=== PATIENT | male | born 1945 | race Caucasian/White ===

== ENCOUNTER 2018-04-04 19:05 | Inpatient (IN) | payer OTHER ==
[2018-04-04 19:40] LABS: Absolute Monocytes 0.5 K/uL (0.1-1.3); Absolute Neutrophil 6.1 K/uL (1.8-8.0); Basophils % 0.8 % (0-1.3); Eosinophils % 0.7 % (0-4.4); Hematocrit 42.6 % (39.6-49.0); Lymphocytes % 13.2 % (15.3-44.8); Monocytes % 6.6 % (3.3-12.3); Protime INR 1.14; RBC Red Blood Cell Count 4.78 M/uL (4.33-5.43)
[2018-04-04] MEDS ORDERED: ALBUTEROL 2.5 MG/3 ML NEB SOL ONE (19:50)
[2018-04-04] MEDS ORDERED: IPRATROPIUM BROM 0.5MG/2.5ML ONE (19:50)
[2018-04-04] MEDS ORDERED: ACETAMINOPHEN 500 MG TAB ONE (19:50)
[2018-04-04 19:59] LABS: ALT/SGPT 60 U/L (12-78); AST/SGOT 51 U/L (15-37); Alkaline Phosphatase 61 U/L (45-117); BUN Blood Urea Nitrogen 10 mg/dL (7-18); Bicarbonate 28 mmol/L (21-32); Bilirubin Direct 0.2 mg/dL (0-0.2); Bilirubin Total 0.5 mg/dL (0.2-1.0); Creatine Phosphokinase 511 U/L (39-308); Glucose Level 106 mg/dL (74-106); Lipase 197 U/L (73-393); Protein, Total 7.7 g/dL (6.4-8.2); Sodium Level 137 mmol/L (136-145); Troponin (Emerg Dept Use Only) < 0.02 ng/mL (0.0-0.045)
--- NOTE | 2018-04-04 20:11 | RAD REPORT ---
EXAM DESCRIPTION: Toyin Single View04/04/2018 7:46 pm CLINICAL HISTORY: Cough COMPARISON: 2016 FINDINGS: The lungs appear clear of acute infiltrate. The heart is normal size IMPRESSION: No acute abnormalities displayed
[2018-04-04 20:22] LABS: Blood Gas Oxyhemoglobin 90.1 % (94-97)
[2018-04-04 21:22] LABS: Urine Blood 1+ (NEG); Urine Glucose NEGATIVE (NEG); Urine Protein 1+ (NEG); Urine Specific Gravity 1.025 (1.005-1.030); Urine pH 5.5 (5.0-7.0)
[2018-04-04 21:25] LABS: Urine Bacteria <20 /HPF (NONE SEEN); Urine Culture Reflex Order NOT NEEDED; Urine RBC <5 /HPF (NONE SEEN)
[2018-04-04] MEDS ORDERED: LEVALBUTEROL 1.25 MG/3 ML NEB ONE (23:16)
[2018-04-04] MEDS ORDERED: LORazepam 2 MG/ML VIAL ONE (23:16)
--- NOTE | 2018-04-04 23:19 | EDPHYS ---
Physician Documentation [facility] Name: Pedro Amaya Age: 72 yrs Sex: Male : 1945 Arrival Date: 04/04/2018 Time: 19:09 Bed 5 Private MD: ED Physician Gurmeet Moses HPI: 04/04 19:33 This 72 yrs old Male presents to ER via EMS with complaints of Productive pkl Cough, Fever. 19:33 The patient or guardian reports cough, described as moderate, with productive sputum, pkl that is yellow. Onset: The symptoms/episode began/occurred 3 day(s) ago. Associated signs and symptoms: Pertinent positives: chest pain, with cough, fever. Historical: - Allergies: 19:16 Amoxil; ak1 19:16 phenyifensin; ak1 19:16 solunedrol-cortozone; ak1 19:16 indomethacin; ak1 - Home Meds: 19:29 bupropion HCl 100mg tab 2.5 tabs in the morning and 2 tabs at night Oral tab [Active]; ak1 citalopram 40 mg tab 1 tab once daily [Active]; terazosin 10 mg oral cap 1 cap once daily [Active]; sulfamethoxazole-trimethoprim 800mg // Oral [Active]; pyridostigmine bromide 60mg 1/2 tgabd 3 times daily oral tab [Active]; mycophenolate mofetil 500 mg oral tab 1 tabs [Active]; prednisone 30 mg daily Oral [Active]; Wellbutrin 150mg 2 tabs daily Oral [Active]; clonazepam 0.5 mg Oral tab 1 tab [Active]; citalopram oral [Active]; quetiapine 25 mg oral tab [Active]; - PMHx: 19:16 anxity; ptsd; depression; Hypertension; miastenia gravis; ak1 20:20 COPD; ak1 - PSHx: 19:16 back sx; knee sx; nasal sx; ak1 - Immunization history:: Adult Immunizations unknown. - Social history:: Smoking status: unknown. - Ebola Screening: : No symptoms or risks identified at this time. ROS: 19:33 Eyes: Negative for injury, pain, redness, and discharge, ENT: Negative for injury, pkl pain, and discharge, Neck: Negative for injury, pain, and swelling. 19:33 Cardiovascular: Positive for chest pain, with cough. 19:33 Respiratory: Positive for cough, with yellow sputum, shortness of breath, at rest. 19:33 Abdomen/GI: Negative for abdominal pain, nausea, vomiting, and diarrhea. 19:33 Back: Negative for acute changes. 19:33 : Negative for urinary symptoms. 19:33 MS/extremity: Negative for acute changes. 19:33 Skin: Negative for rash. 19:33 Neuro: Negative for altered mental status. Exam: 19:33 Head/Face: Normocephalic, atraumatic. Eyes: Pupils equal round and reactive to light, pkl extra-ocular motions intact. Lids and lashes normal. Conjunctiva and sclera are non-icteric and not injected. Cornea within normal limits. Periorbital areas with no swelling, redness, or edema. ENT: Nares patent. No nasal discharge, no septal abnormalities noted. Tympanic membranes are normal and external auditory canals are clear. Oropharynx with no redness, swelling, or masses, exudates, or evidence of obstruction, uvula midline. Mucous membranes moist. Neck: Trachea midline, no thyromegaly or masses palpated, and no cervical lymphadenopathy. Supple, full range of motion without nuchal rigidity, or vertebral point tenderness. No Meningismus. Chest/axilla: Normal chest wall appearance and motion. Nontender with no deformity. No lesions are appreciated. Cardiovascular: Regular rate and rhythm with a normal S1 and S2. No gallops, murmurs, or rubs. Normal PMI, no JVD. No pulse deficits. 19:33 Respiratory: the patient does not display signs of respiratory distress, Respirations: labored breathing, that is mild, Breath sounds: rales, that are mild, are scattered. 19:33 Abdomen/GI: Bowel sounds: normal, Palpation: abdomen is soft and non-tender, in all quadrants. 19:33 Back: Exam negative for acute changes. 19:33 : Exam negative for acute changes. 19:33 Musculoskeletal/extremity: Exam is negative for acute changes. 19:33 Skin: Exam negative for rash. 19:33 Neuro: Orientation: is normal, Mentation: is normal, Cranial nerves: grossly normal, Motor: is normal. Vital Signs: 19:16 BP 189 / 89; Pulse 97; Resp 22; Temp 103.1(O); Pulse Ox 90% on R/A; Weight 99.79 kg ak1 (R); Height 5 ft. 10 in. (177.80 cm) (R); Pain 0/10; 20:18 BP 160 / 87; Pulse 100; Resp 19; Pulse Ox 91% on R/A; ak1 20:53 BP 149 / 74; Pulse 111; Resp 22; Pulse Ox 92% on 4 lpm NC; Pain 0/10; ak1 20:57 Temp 101.5(A); ak1 21:36 BP 129 / 71; Pulse 95; Resp 26; Pulse Ox 91% on 4 lpm NC; ak1 22:38 BP 141 / 77; Pulse 98; Resp 24; Temp 100.9(O); Pulse Ox 93% on 4 lpm NC; Pain 0/10; ak1 22:59 BP 139 / 74; Pulse 101; Resp 18; Pulse Ox 91% on R/A; ak1 19:16 Body Mass Index 31.57 (99.79 kg, 177.80 cm) ak1 MDM: 19:20 Patient medically screened. pkl 23:16 Data reviewed: vital signs, nurses notes, lab test result(s), EKG, radiologic studies, pkl CT scan, plain films. 04/04 19:19 Order name: Basic Metabolic Panel; Complete Time: 20:21 [facility] 04/04 19:19 Order name: Blood Culture Adult (2) [facility] 04/04 19:19 Order name: CBC with Diff; Complete Time: 20:21 [facility] 04/04 19:19 Order name: Ckmb; Complete Time: 20:21 [facility] 04/04 19:19 Order name: CPK; Complete Time: 20:21 [facility] 04/04 19:19 Order name: Lactate; Complete Time: 20:21 [facility] 04/04 19:19 Order name: LFT's; Complete Time: 20:21 [facility] 04/04 19:19 Order name: Lipase; Complete Time: 20:21 [facility] 04/04 19:19 Order name: Procalcitonin; Complete Time: 20:21 [facility] 04/04 19:19 Order name: Protime (+inr); Complete Time: 20:21 [facility] 04/04 19:19 Order name: Ptt, Activated; Complete Time: 20:21 tn04/04 19:19 Order name: Troponin (emerg Dept Use Only); Complete Time: 20:21 ak1 04/04 19:19 Order name: Urine Microscopic Only; Complete Time: 21:38 ak1 04/04 19:29 Order name: Flu; Complete Time: 20:21 pkl 04/04 19:19 Order name: Chest Single View XRAY; Complete Time: 20:21 ak1 04/04 19:19 Order name: Cardiac monitoring; Complete Time: 19:22 ak 04/04 19:32 Order name: ABG; Complete Time: 20:45 pk 04/04 19:37 Order name: Strep; Complete Time: 20:21 pk 04/04 20:15 Order name: Throat Culture [facility] 04/04 20:24 Order name: D-Dimer; Complete Time: 21:08 pkl 04/04 21:07 Order name: CT Chest For PE Angio [facility] 04/04 21:17 Order name: Urine Dipstick--Ancillary (enter results); Complete Time: 21:38 [facility] 04/04 19:19 Order name: EKG - Nurse/Tech; Complete Time: 19:22 [facility] 04/04 19:19 Order name: IV Saline Lock - Large Bore; Complete Time: 19:31 ak1 04/04 19:19 Order name: Labs collected and sent; Complete Time: 19:31 [facility] 04/04 19:20 Order name: O2 Per Protocol; Complete Time: 19:32 ak1 04/04 19:20 Order name: O2 Sat Monitoring; Complete Time: 19:32 [facility] 04/04 19:20 Order name: Urine Dipstick-Ancillary (obtain specimen); Complete Time: 20:58 [facility] Administered Medications: 19:33 CANCELLED (ERP verba orders): NS 0.9% (30 ml/kg) 30 ml/kg IV at bolus once; Sepsis [facility] Protocol 19:47 Drug: Tylenol 1000 mg Route: PO; tn1 20:12 Follow up: Response: No adverse reaction [facility] 19:47 Drug: NS 0.9% 1000 ml Route: IV; Rate: 100 ml/hr; Site: right antecubital; [facility] 04/05 00:01 Follow up: IV Status: Infusion continued upon admission [facility] 04/04 20:13 Drug: Albuterol - atroVENT (3:1) (2.5 mg - 0.5 mg) 3 ml Route: Nebulizer; ak1 20:58 Follow up: Response: No adverse reaction ak1 23:13 Drug: Xopenex 1.25 mg Route: Inhalation; lp1 23:13 Drug: Ativan 1 mg Route: IVP; Site: left antecubital; lp1 23:59 Follow up: Response: No adverse reaction ak1 23:14 Drug: Zofran 4 mg Route: IVP; Site: right antecubital; ak1 23:59 Follow up: Response: No adverse reaction ak1 Disposition: 04/04/18 23:19 Hospitalization ordered by Sharad Segal for Inpatient Admission. Preliminary diagnosis is Acute dyspnea. Pneumonia right lung. Hypoxia. Myasthenia gravis. - Bed requested for Telemetry/MedSurg (Inpatient). - Status is Inpatient Admission. ak1 - Condition is Stable. - Problem is new. - Symptoms are unchanged. UTI on Admission? No Signatures: Dispatcher [employer] EDMS Fanny Parker RN RN Gurmeet Moses MD MD [facility] Gail Chavez RN RN 1 Arabella Lester RN RN ak1 Corrections: (The following items were deleted from the chart) 19:32 19:20 Accucheck ordered. ak1 ak1 19:33 19:20 NS 0.9% (30 ml/kg) 30 ml/kg IV at bolus once; Sepsis Protocol ordered. ak1 ak1 04/05 00:04 04/04 23:19 Hospitalization Ordered by Sharad Segal MD for Inpatient Admission. Preliminary diagnosis is Acute dyspnea. Pneumonia right lung. Hypoxia. Myasthenia gravis. Bed requested for Telemetry/MedSurg (Inpatient). Status is Inpatient Admission. Condition is Stable. Problem is new. Symptoms are unchanged. UTI on Admission? No. pkl 04/05 00:29 00:04 04/04/2018 23:19 Hospitalization Ordered by Sharad Segal MD for Inpatient ak1 Admission. Preliminary diagnosis is Acute dyspnea. Pneumonia right lung. Hypoxia. Myasthenia gravis. Bed requested for Telemetry/MedSurg (Inpatient). Status is Inpatient Admission. Condition is Stable. Problem is new. Symptoms are unchanged. UTI on Admission? No. joshua
--- NOTE | 2018-04-04 23:19 | ER ---
Nurse's Notes [facility] Name: Pedro Amaya Age: 72 yrs Sex: Male : 1945 Arrival Date: 04/04/2018 Time: 19:09 Bed 5 Private MD: Diagnosis: Acute dyspnea. Pneumonia right lung. Hypoxia. Myasthenia gravis Presentation: 04/04 19:09 Presenting complaint: EMS states: productive cough X3 days with fever. Transition of ak1 care: patient was not received from another setting of care. Onset of symptoms is unknown. Risk Assessment: Do you want to hurt yourself or someone else? Patient reports no desire to harm self or others. Initial Sepsis Screen: Does the patient meet any 2 criteria? RR > 20 per min. Temp <36.0*C (96.8*F)) or > 38.3*C (100.9*F). HR > 90 bpm. Does the patient have a suspected source of infection? Yes: Productive cough/pneumonia. Care prior to arrival: None. 19:09 Method Of Arrival: EMS: [facility] ak 19:09 Acuity: ERICH 2 ak1 19:29 Note 4 zofran IV given in route via EMS. ak1 Triage Assessment: 19:16 General: Appears in no apparent distress. Behavior is calm, cooperative. Pain: Denies ak1 pain. EENT: No signs and/or symptoms were reported regarding the EENT system. Neuro: No deficits noted. Cardiovascular: No deficits noted. Respiratory: Reports cough that is productive, Onset: The symptoms/episode began/occurred 3days [employer]OR TENDER, the patient has mild shortness of breath. GI: No signs and/or symptoms were reported involving the gastrointestinal system. : No signs and/or symptoms were reported regarding the genitourinary system. Derm: Skin temperature is hot. Musculoskeletal: No signs and/or symptoms reported regarding the musculoskeletal system. Historical: - Allergies: 19:16 Amoxil; ak1 19:16 phenyifensin; ak1 19:16 solunedrol-cortozone; ak1 19:16 indomethacin; ak1 - Home Meds: 19:29 bupropion HCl 100mg tab 2.5 tabs in the morning and 2 tabs at night Oral tab [Active]; ak1 citalopram 40 mg tab 1 tab once daily [Active]; terazosin 10 mg oral cap 1 cap once daily [Active]; sulfamethoxazole-trimethoprim 800mg M// Oral [Active]; pyridostigmine bromide 60mg 1/2 tgabd 3 times daily oral tab [Active]; mycophenolate mofetil 500 mg oral tab 1 tabs [Active]; prednisone 30 mg daily Oral [Active]; Wellbutrin 150mg 2 tabs daily Oral [Active]; clonazepam 0.5 mg Oral tab 1 tab [Active]; citalopram oral [Active]; quetiapine 25 mg oral tab [Active]; - PMHx: 19:16 anxity; ptsd; depression; Hypertension; miastenia gravis; ak1 20:20 COPD; ak1 - PSHx: 19:16 back sx; knee sx; nasal sx; ak1 - Immunization history:: Adult Immunizations unknown. - Social history:: Smoking status: unknown. - Ebola Screening: : No symptoms or risks identified at this time. Screenin:31 Abuse screen: Denies threats or abuse. Denies injuries from another. Nutritional ak1 screening: No deficits noted. Tuberculosis screening: No symptoms or risk factors identified. Fall Risk None identified. Assessment: 19:30 Cardiovascular: Rhythm is sinus rhythm. Respiratory: Airway is patent Respiratory ak1 effort is even, unlabored. 20:22 Respiratory: Breath sounds are diminished Breath sounds with wheezes. ak1 20:51 Reassessment: Patient appears in no apparent distress at this time. Patient and/or ak1 family updated on plan of care and expected duration. Pain level reassessed. Patient is alert, oriented x 3, equal unlabored respirations, skin warm/dry/pink. pt moved to a recliner for comfort. pt with increased SOB after ambulating from ER stretcher to recliner. 21:36 Reassessment: Patient appears in no apparent distress at this time. No changes from ak1 previously documented assessment. Patient and/or family updated on plan of care and expected duration. Pain level reassessed. Patient is alert, oriented x 3, equal unlabored respirations, skin warm/dry/pink. Patient states feeling better. Patient states symptoms have improved. 22:19 Reassessment: Patient appears in no apparent distress at this time. No changes from ak1 previously documented assessment. Patient and/or family updated on plan of care and expected duration. Pain level reassessed. Patient is alert, oriented x 3, equal unlabored respirations, skin warm/dry/pink. pt returned from CT Patient states feeling better. Patient states symptoms have improved. 22:59 Reassessment: pt placed on roomair to obtain oxygen saturation. ak1 23:39 Reassessment: pt taking Terazosin 10mg, Citalopram 40mg, Hydroxizine 25mg home ak1 medications with ERP approval. Dr. Segal notified as well. Vital Signs: 19:16 BP 189 / 89; Pulse 97; Resp 22; Temp 103.1(O); Pulse Ox 90% on R/A; Weight 99.79 kg ak1 (R); Height 5 ft. 10 in. (177.80 cm) (R); Pain 0/10; 20:18 BP 160 / 87; Pulse 100; Resp 19; Pulse Ox 91% on R/A; ak1 20:53 BP 149 / 74; Pulse 111; Resp 22; Pulse Ox 92% on 4 lpm NC; Pain 0/10; ak1 20:57 Temp 101.5(A); ak1 21:36 BP 129 / 71; Pulse 95; Resp 26; Pulse Ox 91% on 4 lpm NC; ak1 22:38 BP 141 / 77; Pulse 98; Resp 24; Temp 100.9(O); Pulse Ox 93% on 4 lpm NC; Pain 0/10; ak1 22:59 BP 139 / 74; Pulse 101; Resp 18; Pulse Ox 91% on R/A; ak1 19:16 Body Mass Index 31.57 (99.79 kg, 177.80 cm) ak1 ED Course: 19:09 Patient arrived in ED. ak1 19:13 Triage completed. ak1 19:15 First set of blood cultures drawn by me. ca1 19:15 Inserted saline lock: 20 gauge in left antecubital area, using aseptic technique. Blood ca1 collected. 19:16 Arm band placed on Patient placed in an exam room, on a stretcher, Patient notified of ak1 wait time. 19:20 Gurmeet Moses MD is Attending Physician. pkl 19:20 Initial lab(s) drawn, by ED staff, sent to lab. EKG done, by ED staff, reviewed by Gurmeet Moses MD Flu and/or RSV swab sent to lab. Maintain EMS IV. Dressing intact. Good blood return noted. Site clean \T\ dry. Gauge \T\ site: 18g right AC. 19:30 Patient has correct armband on for positive identification. Placed in gown. Bed in low ak1 position. Call light in reach. Side rails up X2. silicator on. Pulse ox on. NIBP on. 19:31 Arabella Lester, RN is Primary Nurse. ak1 19:44 Chest Single View XRAY In Process Unspecified. EDMS 21:07 Notified ED physician of a critical lab result(s). D-Dimer of 677 Dr Moses notified. bb 22:01 CT Chest For PE Angio In Process Unspecified. EDMS 23:17 Sharad Segal MD is Hospitalizing Provider. pkl 23:40 No provider procedures requiring assistance completed. Patient admitted, IV remains in ak1 place. Administered Medications: 19:33 CANCELLED (ERP verba orders): NS 0.9% (30 ml/kg) 30 ml/kg IV at bolus once; Sepsis ak1 Protocol 19:47 Drug: Tylenol 1000 mg Route: PO; ak1 20:12 Follow up: Response: No adverse reaction ak1 19:47 Drug: NS 0.9% 1000 ml Route: IV; Rate: 100 ml/hr; Site: right antecubital; ak1 04/05 00:01 Follow up: IV Status: Infusion continued upon admission ak1 04/04 20:13 Drug: Albuterol - atroVENT (3:1) (2.5 mg - 0.5 mg) 3 ml Route: Nebulizer; ak1 20:58 Follow up: Response: No adverse reaction ak1 23:13 Drug: Xopenex 1.25 mg Route: Inhalation; lp1 23:13 Drug: Ativan 1 mg Route: IVP; Site: left antecubital; lp1 23:59 Follow up: Response: No adverse reaction ak1 23:14 Drug: Zofran 4 mg Route: IVP; Site: right antecubital; ak1 23:59 Follow up: Response: No adverse reaction ak1 Outcome: 23:19 Decision to Hospitalize by Provider. pkl 23:40 Condition: stable ak1 23:40 Instructed on the need for admit. 04/05 00:17 Admitted to Tele accompanied by tech, family with patient, via stretcher, room 425, ak1 with oxygen, with chart, Report called to Lyla 00:29 Patient left the ED. ak1 Signatures: Dispatcher [employer] Gurmeet Orr MD MD pkl Ballard, Brenda, RN RN bb Gail Chavez, RN RN lp1 Arabella Lester, RN RN ak1 Anusha Serrano RN RN ca1 Corrections: (The following items were deleted from the chart) 04/04 19:32 19:30 Inserted saline lock: 20 gauge in left antecubital area, using aseptic technique. ca1 Blood collected. ca1
[2018-04-04] MEDS ORDERED: ONDANSETRON 4 MG/2 ML VIAL ONE (23:21)
--- NOTE | 2018-04-04 23:53 | P.HP ---
Certification for Inpatient Patient admitted to: Inpatient With expected LOS: >2 Midnights Practitioner: I am a practitioner with admitting privileges, knowledge of patient current condition, hospital course, and medical plan of care. Services: Services provided to patient in accordance with Admission requirements found in Title 42 Section 412.3 of the Code of Federal Regulations Patient History Date of Service: 04/04/18 Reason for admission: COPD exacerbation, Pneumonia History of Present Illness: Mr Amaya is a 72 yeas old male with history of COPD, Myasthenia Gravis, HTN, PTSD, who start about 3 days ago with productive cough and SOB. He has had yellowish secretions. His and daughter at the bedside answering questions as well, they said that the patient has not had fever or chills but he was weaker than usual. No history of chest pain, nausea, vomiting or diarrhea. At arrival his temp was 103.1 F, BP 189/89, Os sat 90% on RA. Lab work shows normal WBC count, also normal lactate and procalcitonin. D-dimer was mildly elevated, subsequent CTA chest was negative for PE, however, shows a consolidation in the right base. Allergies Antihistamines - Alkylamine Allergy (Verified 06/01/14 22:35) Hives/Rash chlorpheniramine maleate [From Actifed Cold-Allergy] Allergy (Verified 06/01/14 22:35) unknown phenylephrine HCl [From Actifed Cold-Allergy] Allergy (Verified 06/01/14 22:35) unknown pseudoephedrine HCl [From Actifed Cold-Allergy] Allergy (Verified 06/01/14 22:35 ) unknown triprolidine HCl [From Actifed Cold-Allergy] Allergy (Verified 06/01/14 22:35) unknown Home medications list reviewed: Yes Home Medications: Citalopram Hydrobromide [Citalopram HBr] 40 mg PO BEDTIME 06/01/14 Finasteride [Proscar*] 5 mg PO DAILY 06/01/14 Meloxicam [Mobic] 15 mg PO DAILY 06/01/14 Terazosin HCl [Hytrin] 10 mg PO BEDTIME 06/01/14 buPROPion HCl [Wellbutrin*] 100 mg PO BID 06/01/14 clonazePAM [Klonopin*] 0.5 mg PO BEDTIME 06/01/14 Aspirin [Ecotrin] 81 mg PO #30 tablet. 06/02/14 - Past Medical/Surgical History Diabetic: No -: sleep apnea -: PTSD -: back sx -: knee sx -: nasal sx - Family History Family History: Reviewed- Non-Contributory - Social History Alcohol use: Yes CD- Drugs: No Caffeine use: Yes Place of Residence: Home Physical Examination - Physical Exam General: Alert, In no apparent distress HEENT: Atraumatic, PERRLA, Mucous membr. moist/pink, EOMI, Sclerae nonicteric Neck: Supple, 2+ carotid pulse no bruit, No LAD, Without JVD or thyroid abnormality Respiratory: Diminished, Crackles/rales (right base crackles) Cardiovascular: Regular rate/rhythm, Normal S1 S2 Gastrointestinal: Normal bowel sounds, No tenderness Musculoskeletal: No tenderness Integumentary: No rashes Neurological: Normal speech, Normal strength at 5/5 x4 extr, Normal tone, Normal affect Lymphatics: No axilla or inguinal lymphadenopathy - Studies Laboratory Data (last 24 hrs) 04/04/18 19:15: APTT 29.1 04/04/18 19:15: PT 13.5 H, INR 1.14 04/04/18 19:15: WBC 7.8, Hgb 14.5, Hct 42.6, Plt Count 194 04/04/18 19:15: Sodium 137, Potassium 4.0, BUN 10, Creatinine 1.11, Glucose 106 , Total Bilirubin 0.5, AST 51 H, ALT 60, Alkaline Phosphatase 61, Lipase 197 Microbiology Data (last 24 hrs): 04/04/18 19:45 Throat Group A Streptococcus Rapid Screen - Final 04/04/18 19:45 Nasopharnyx Influenza Type A Antigen Screen - Final 04/04/18 19:45 Nasopharnyx Influenza Type B Antigen Screen - Final Assessment and Plan - Problems (Diagnosis) (1) COPD exacerbation Current Visit: Yes Status: Acute (2) Pneumonia Current Visit: Yes Status: Acute Qualifiers: Pneumonia type: due to unspecified organism Laterality: right Lung location: lower lobe of lung Qualified Code(s): J18.1 - Lobar pneumonia, unspecified organism (3) Myasthenia gravis Current Visit: Yes Status: Acute (4) HTN (hypertension) Current Visit: Yes Status: Acute Qualifiers: Hypertension type: essential hypertension Qualified Code(s): I10 - Essential (primary) hypertension (5) PTSD (post-traumatic stress disorder) Current Visit: Yes Status: Acute - Plan The patient will be admitted to the hospital due to right lower lobe pneumonia. Lab work shows normal WBC count, lactate and procalcitonin. This may be a viral infection, however, due to his baseline MG, and clinical presentation, will start empiric treatment with IV Levaquin. Influenza screening is negative. Continue IV fluids, breathing treatments and symptomatic medication. - Advance Directives Does patient have a Living Will: No Does patient have a Durable POA for Healthcare: No - Code Status/Comfort Care Code Status Assessed: Yes Code Status: Full Code
[2018-04-05] MEDS ORDERED: NA CHLORIDE 0.9% 1,000 ML IV SCH (00:44)
[2018-04-05] MEDS ORDERED: Levofloxacin 750mg IV 750 MG/150 ML BAG IV SCH (00:44)
[2018-04-05] MEDS ORDERED: ONDANSETRON 4 MG/2 ML VIAL IV PRN (00:44)
[2018-04-05 00:47] VITALS: BMI 33.0
[2018-04-05] MEDS: ACETAMINOPHEN 500 MG TAB PO PRN ×5 (01:14→21:18)
[2018-04-05] MEDS: IPRATROPIUM BROM 0.5MG/2.5ML NEB PRN ×2 (04:01→09:10)
[2018-04-05] MEDS: ALBUTEROL 2.5 MG/3 ML NEB SOL NEB PRN ×2 (04:01→09:10)
[2018-04-05 05:22] LABS: Absolute Lymphocytes (CBC) 0.7 K/uL (0.7-4.9); Absolute Monocytes 0.5 K/uL (0.1-1.3); Absolute Neutrophil 8.2 K/uL (1.8-8.0); Basophils % 0.4 % (0-1.3); Hematocrit 39.1 % (39.6-49.0); Lymphocytes % 7.5 % (15.3-44.8); MPV 8.2 fL (7.6-11.3); Monocytes % 5.5 % (3.3-12.3)
[2018-04-05 05:38] LABS: Magnesium 1.7 mg/dL (1.8-2.4)
[2018-04-05] MEDS ORDERED: MAGNESIUM SULFATE 1 gm IVPB 1 GM/100 ML BAG IV ONE (05:53)
[2018-04-05 06:12] LABS: Blood Morphology Comment NOT SEEN (NOT SEEN); Platelet Estimate ADEQ; Urine White Blood Cell Casts OK
[2018-04-05] MEDS: ENOXAPARIN 40 MG/0.4 ML SQ SCH (08:32)
--- NOTE | 2018-04-05 10:14 | EKG ---
Test Date: 2018-04-04 Test Time: 19:11:23 Substance Abuse Therapist: JEB MEASUREMENT RESULTS: Intervals: Rate: 96 MN: 146 QRSD: 124 QT: 374 QTc: 472 Elaine: P: 53 MN: 146 QRS: -14 T: 54 INTERPRETIVE STATEMENTS: Normal sinus rhythm Right bundle branch block Abnormal ECG Compared to ECG 06/02/2014 06:37:23 Myocardial infarct finding no longer present Electronically Signed On 04-05-18 10:13:12 SCALE OPERATOR by Charlie Ji
[2018-04-05] MEDS ORDERED: HYDROCODONE/APAP 7.5/325 MG TAB PO PRN (10:18)
[2018-04-05] MEDS: METHYLPREDNISOLONE 40 MG INJ IV SCH ×2 (10:24→21:19)
[2018-04-05] MEDS: CEFTRIAXONE/SWI 1gm 1 GM/10 ML SYR IVP SCH (10:24)
[2018-04-05] MEDS: FINASTERIDE 5 MG TAB PO SCH (10:26)
[2018-04-05] MEDS: AZITHROMYCIN IV 500 MG in NA CHLORIDE 0.9% 250 ML IVPB SCH (11:17)
[2018-04-05] MEDS: PYRIDOSTIGMINE 60 MG TABLET PO SCH ×3 (11:17→21:19)
[2018-04-05] MEDS: LIDOCAINE 5% PATCH TOP SCH (11:17)
[2018-04-05] MEDS: buPROPion HCl 100 MG TAB PO SCH (11:18)
--- NOTE | 2018-04-05 11:26 | RAD REPORT ---
EXAM DESCRIPTION: CT - Chest For Pe Angio - 04/05/2018 5:04 am CLINICAL HISTORY: Chest pain. Cough;Dyspnea COMPARISON: THORAX W CONTRAST dated 06/20/2014 TECHNIQUE: CT angiogram of the pulmonary arteries was performed with MIP. All CT scans are performed using dose optimization technique as appropriate and may include automated exposure control or mA/KV adjustment according to patient size. FINDINGS: Moderate motion artifact is present. No evidence of proximal pulmonary thromboembolism. No acute aortic finding demonstrated. Respiratory artifact blurs the pulmonary parenchyma. There is suggestion of a small area of consolida tion in the right lower lobe. No significant pericardial or pleural fluid. No concerning bony finding. IMPRESSION: No evidence of pulmonary thromboembolism proximally. Motion artifact limits assessment o f the more distal branches. Equivocal findings of developing right base pneumonia, limited in assessment due to respiratory motio n artifact.
[2018-04-05] MEDS: ALBUTEROL 2.5 MG/3 ML NEB SOL NEB SCH ×3 (11:45→20:27)
[2018-04-05] MEDS: IPRATROPIUM BROM 0.5MG/2.5ML NEB SCH ×3 (11:45→20:27)
[2018-04-05] MEDS ORDERED: PNEUMOCOCCAL VACCINE 0.5 ML IMVAC ONE (12:00)
--- NOTE | 2018-04-05 13:10 | RAD REPORT ---
EXAM DESCRIPTION: RAD - Ribs Right - 04/05/2018 11:04 am CLINICAL HISTORY: right rib pain, Tenderness to palpation COMPARISON: Chest Single View dated 04/04/2018; Chest For Pe Angio dated 04/04/2018 FINDINGS: No displaced rib fractures seen on the right. No aggressive rib lesion.
[2018-04-05] MEDS ORDERED: GUAIFENESIN/CODEINE 5ML UCUP PO PRN (13:41)
[2018-04-05] MEDS: CITALOPRAM 10 MG TABLET PO SCH (14:53)
--- NOTE | 2018-04-05 20:31 | PN ---
Date of Progress Note: 04/05/2018 Subjective: The patient is seen and examined. Chart reviewed, and case was discussed with RN. The patient seems to be lethargic. and granddaughter at the bedside. Treatment plan explained. All questions answered. The patient reporting pain on the right rib from a significant amount of coughing. Code status full. No medical power of employment attorney. Medications: List reviewed. Physical Examination: Vital Signs: Temperature 97.9, heart rate 102, blood pressure 113/50, respirations 20, O2 of 93% on 3 L via nasal cannula. General: Asleep, but arousable, oriented x3. An elderly male, ill-appearing, obese. CV: S1, S2. Sinus tachycardia. Peripheral pulses present. Respiratory: Diminished breath sounds. Wheezing heard throughout. The patient is tachypneic. Use of accessory muscles is present. No stridor. Gastrointestinal: Abdomen is soft, nontender, nondistended. Positive bowel sounds. Extremities: No clubbing, cyanosis, or edema. Musculoskeletal: The patient has tenderness on the right lower rib area. Neuro: Cranial nerves 2 through 12 intact grossly. No focal neurological deficit. Speech is normal. Strength is symmetric, bilateral upper and lower extremities. Skin: No rashes. Normal skin turgor. Laboratory Data: Sodium 135, potassium 4, chloride 102, CO2 of 25, BUN 13, creatinine 1.62, glucose 85, calcium 7.9, magnesium 1.7. WBC 9.4, H and H 13.6 and 39.1, platelets 180. D-dimer 677. Group A strep screen is negative. Influenza screen is negative. Blood cultures are pending. Rib x-ray shows no acute rib lesions or fracture. CT angio chest shows no evidence of PE, developing right base pneumonia, personally reviewed. Assessment And Plan: A 72-year-old male with: 1. Acute chronic obstructive pulmonary disease exacerbation. Continue nebulizer treatments. Switch to scheduled treatments instead of p.r.n. We will add IV steroids. 2. Right basilar pneumonia. We will switch antibiotics to azithromycin and Rocephin. Discontinue Levaquin due to interaction with the patient's myasthenia gravis. 3. Myasthenia gravis. Resume home medications. 4. Essential hypertension, stable. Resume home medications as appropriate. 5. Posttraumatic stress disorder. 6. Obstructive sleep apnea. 7. Gastrointestinal and deep venous thrombosis prophylaxis addressed. The patient is on Lovenox. We will adjust pain medications. Likely the patient has significant pain in the ribs from coughing. We will add antitussive medication /ALEIDA Voice ID: [id number] Report ID: [id number] LELA
[2018-04-05] MEDS ORDERED: TERAZOSIN HCL 10 MG PO SCH (21:00)
[2018-04-05] MEDS ORDERED: HOME MED 1 EA UNK (Citalopram Hydrobromide [Citalopram Hbr] 1 TAB) PO SCH ×2 (21:00)
[2018-04-05] MEDS: clonazePAM 0.5 MG TAB PO SCH (21:18)
[2018-04-05] MEDS: TERAZOSIN HCL 5 MG CAP PO SCH (21:19)
[2018-04-05] MEDS: MYCOPHENOLATE MOFETIL 500 MG PO SCH (21:20)
[2018-04-06] MEDS: IPRATROPIUM BROM 0.5MG/2.5ML NEB SCH ×7 (00:26→23:51)
[2018-04-06] MEDS: ALBUTEROL 2.5 MG/3 ML NEB SOL NEB SCH ×7 (00:26→23:51)
[2018-04-06 04:30] LABS: Magnesium 2.2 mg/dL (1.8-2.4); Potassium 4.6 mmol/L (3.5-5.1)
[2018-04-06] MEDS: FINASTERIDE 5 MG TAB PO SCH (08:49)
[2018-04-06] MEDS: METHYLPREDNISOLONE 40 MG INJ IV SCH ×2 (08:49→21:31)
[2018-04-06] MEDS: PYRIDOSTIGMINE 60 MG TABLET PO SCH ×3 (08:49→21:29)
[2018-04-06] MEDS: CITALOPRAM 10 MG TABLET PO SCH (08:50)
[2018-04-06] MEDS: buPROPion HCl 100 MG TAB PO SCH (08:51)
[2018-04-06] MEDS: CEFTRIAXONE/SWI 1gm 1 GM/10 ML SYR IVP SCH (08:52)
[2018-04-06] MEDS: ENOXAPARIN 40 MG/0.4 ML SQ SCH (08:52)
[2018-04-06] MEDS: LIDOCAINE 5% PATCH TOP SCH (08:53)
[2018-04-06] MEDS: AZITHROMYCIN IV 500 MG in NA CHLORIDE 0.9% 250 ML IVPB SCH (09:03)
[2018-04-06] MEDS: NA CHLORIDE 0.9% 1,000 ML IV SCH ×2 (12:00→21:28)
--- NOTE | 2018-04-06 16:44 | PN ---
Date of Progress Note: 04/06/2018 Subjective: The patient is seen and examined. Chart reviewed. Discussed with RN. Family at the [facility], requesting Neurology consultation regarding his myasthenia gravis. The patient's breathing is significantly better. The patient is much more awake and alert today. Medications: List reviewed. Physical Examination: Vital Signs: Temperature 97.7, heart rate 87, blood pressure 133/74, respirations 20, O2 92% on 2 L via nasal cannula. General: Awake, alert, and oriented x3. Elderly male, ill appearing, in mild respiratory distress, obese. CV: S1, S2. Peripheral pulses present. Regular rate and rhythm. Gastrointestinal: Abdomen is soft, nontender, nondistended. Positive bowel sounds. Respiratory: Diminished breath sounds throughout. Some wheezing is heard. Extremities: No clubbing, cyanosis, or edema. Neurologic: Nonfocal. Laboratory Data: Sodium 136, potassium 4.6, chloride 100, CO2 27, BUN 25, creatinine 1.72, glucose 1 08, calcium 8.3. Blood cultures, no growth to date. Rib x-ray shows no displaced rib fractures on t he right. Assessment/plan: A 72-year-old male with: 1.Acute chronic obstructive pulmonary disease exacerbation. We will continue nebulizer treatments a nd continue steroids, improving. 2.Right basilar pneumonia. Antibiotics adjusted. Cultures are negative to date. The patient is im munocompromised due to his medications for myasthenia gravis. 3.Myasthenia gravis, stable. We will consult the patient's neurologist, Dr. Leon. Continue home m edications. 4.Immunocompromised status. 5.Essential hypertension, stable. 6.Posttraumatic stress disorder. Continue with anxiety medications as needed. 7.Obstructive sleep apnea. 8.Gastrointestinal and deep venous thrombosis prophylaxis with PPI and Lovenox. Plan: DC in the next 24-48 hours depending on clinical response. SA/MODL Voice ID: [id number] Report ID: [id number]
[2018-04-06] MEDS ORDERED: Meropenem 500 MG VIAL IV SCH (17:00)
[2018-04-06] MEDS: Meropenem 500 MG in NA CHLORIDE 0.9% 100 ML IV SCH (17:00)
--- NOTE | 2018-04-06 20:01 | CON ---
Date of Consultation: 04/06/2018 Time: 1500. Reason: Myasthenia and pneumonia. History: A 72-year-old gentleman with seropositive myasthenia gravis, primarily a lot of ocular manifestations, but he does have generalized myasthenia gravis, being maintained on CellCept and Mestinon. The patient does not tolerate the Mestinon very well. So, he is only taking 30 mg 3 times daily. We have had a hard time actually finding an immune-modulating agent that he can tolerate and he has done best with the mycophenolate 500 at night, some initial slight nausea on that, and comes to the hospital because he has had 3-4 days of cough, low-grade fever, malaise. So, he got the ceftriaxone yesterday and today. Workup in the Emergency Department revealed hypoxia with a normal white count. CT of chest revealed findings suggestive of developing right lower lobe pneumonia. He was admitted to the hospital, given supplemental oxygen, nebulizers, and a quinolone antibiotic. The patient soon after receiving the quinolone developed ptosis, OS, and worsening dyspnea. The quinolone has since been discontinued. He has received a dose of ceftriaxone. He continues to tolerate that well. He is also currently receiving azithromycin , will stop that as theoretically that can worsen myasthenia gravis as well. He has actually improved clinically from earlier today. White count remains 9.4 yesterday. He does have some slight renal impairment with a creatinine of 1.7. He is not dysarthric. He does not have neck extensor or flexor weakness or prominent accessory muscle use presently. Consultation was requested. Past Medical History: Myasthenia gravis, PTSD, COPD, high blood pressure medications routinely, CellCept and Mestinon as alluded to, clonazepam, Wellbutrin, terazosin, prednisone 1 mg daily, Proscar, Celexa. Allergies: THE PATIENT IS ALLERGIC TO PHENYLEPHRINE, PSEUDOEPHEDRINE, ANTIHISTAMINES, PENICILLINS, AND AMOXICILLIN. THE PATIENT STATES THE PENICILLIN ALLERGY IS NOT ONE OF RASH NOTED BUT ONE OF FEELING JITTERY AND CONFUSED. Social History: He is . He is normally independent with activities of daily living. He does drink. Family History: There is no family history of prominent autoimmune disorders. Review of Systems: General: Acutely ill presently. Eyes: Ptosis. Does not complain of diplopia at present, although it is a common complaint with him when his myasthenia decompensates. Ears, Nose, Throat: No dysphagia. No dysarthria. Cardiovascular: Hypertension. Pulmonary: Pneumonia. GI: Negative. : Negative. Musculoskeletal: Arthralgias. Neurologic: As noted. Psychiatric: PTSD. Endocrine: Negative. Hematologic: Negative. Physical Examination: Vital Signs: 98.9, 77, 20, 114/60, 97. General: Pleasant heavyset gentleman sitting in bed, not tachypneic. Awake, alert, oriented to time, person, place, situation. Heart: Sinus rhythm. Inspiratory, expiratory wheezes, rales, right lower lobe. Eyes: Pupils reactive. Asymmetric ptosis, OS greater than OD. Ocular motion full without nystagmus. No subjective diplopia. Neck: Flexion, extension full. ENT: Face symmetric. Mastoid at full strength, tongue full strength, soft palate elevates bilaterally. Neurologic: Extremity strength full. Can count to 10 in 1 breath. Sensation decreased symmetrically distally. Reflexes trace to 1/4. Toes are downgoing. Cerebellar exam demonstrates no ataxia. Gait is normal. Pertinent Labs: Last white count 9.4, creatinine 1.7. Chest x-ray and CT of chest as noted. Impression: Pneumonia, myasthenia gravis. Plan: I did review with the patient's attending. I would in general avoid aminoglycosides, quinolones, and macrolide antibiotics in patients with myasthenia. I think in general cephalosporins are likely safe given he has probable community-acquired pneumonia, meropenem is likely going to be safe as well. The patient appears to still need intravenous antibiotics. He can probably be safely switched over to an oral cephalosporin on discharge. I have taken the liberty of stopping the azithromycin and he could either stay on the ceftriaxone or be changed over to meropenem to treat the pneumonia. We will repeat CMP and CBC in the morning. CellCept can be held if needed. Thank you for the consult. We will continue to follow with you. RANCHO Voice ID: [id number] Report ID: [id number] [email or web address]
[2018-04-06] MEDS: MYCOPHENOLATE MOFETIL 500 MG PO SCH (21:29)
[2018-04-06] MEDS: clonazePAM 0.5 MG TAB PO SCH (21:30)
[2018-04-06] MEDS: TERAZOSIN HCL 5 MG CAP PO SCH (21:30)
[2018-04-07] MEDS: Meropenem 500 MG in NA CHLORIDE 0.9% 100 ML IV SCH ×2 (00:29→10:23)
[2018-04-07 04:15] LABS: Absolute Lymphocytes (CBC) 0.6 K/uL (0.7-4.9); Absolute Monocytes 0.3 K/uL (0.1-1.3); Absolute Neutrophil 10.6 K/uL (1.8-8.0); Basophils % 0.1 % (0-1.3); Hematocrit 34.5 % (39.6-49.0); MPV 8.5 fL (7.6-11.3); RBC Red Blood Cell Count 3.86 M/uL (4.33-5.43)
[2018-04-07 04:33] LABS: Albumin 3.2 g/dL (3.4-5.0); Bilirubin Total 0.4 mg/dL (0.2-1.0); Potassium 4.7 mmol/L (3.5-5.1)
[2018-04-07] MEDS: ALBUTEROL 2.5 MG/3 ML NEB SOL NEB SCH ×3 (04:35→11:32)
[2018-04-07] MEDS: IPRATROPIUM BROM 0.5MG/2.5ML NEB SCH ×3 (04:35→11:32)
[2018-04-07] MEDS: NA CHLORIDE 0.9% 1,000 ML IV SCH (08:00)
[2018-04-07] MEDS: ENOXAPARIN 40 MG/0.4 ML SQ SCH (09:00)
[2018-04-07] MEDS: LIDOCAINE 5% PATCH TOP SCH (09:00)
[2018-04-07] MEDS: CITALOPRAM 10 MG TABLET PO SCH (10:22)
[2018-04-07] MEDS: buPROPion HCl 100 MG TAB PO SCH (10:23)
[2018-04-07] MEDS: METHYLPREDNISOLONE 40 MG INJ IV SCH (10:24)
[2018-04-07] MEDS: FINASTERIDE 5 MG TAB PO SCH (10:25)
[2018-04-07] MEDS: PYRIDOSTIGMINE 60 MG TABLET PO SCH (10:25)
[2018-04-07 10:26] VITALS: O2SAT 93
[2018-04-07 14:28] VITALS: BP 119/67; TEMP 98.5
--- NOTE | 2018-04-07 17:50 | P.DS ---
Admission Date: 04/04/18 Discharge Date: 04/07/18 Disposition: ROUTINE DISCHARGE Discharge Condition: GOOD Reason for Admission: COPD exacerbation, Pneumonia Consultations: Neurology, Dr. Leon Brief History of Present Illness: Mr Amaya is a 72 yeas old male with history of COPD, Myasthenia Gravis, HTN, PTSD, who start about 3 days ago with productive cough and SOB. He has had yellowish secretions. His and daughter at the bedside answering questions as well, they said that the patient has not had fever or chills but he was weaker than usual. No history of chest pain, nausea, vomiting or diarrhea. At arrival his temp was 103.1 F, BP 189/89, Os sat 90% on RA. Lab work shows normal WBC count, also normal lactate and procalcitonin. D-dimer was mildly elevated, subsequent CTA chest was negative for PE, however, shows a consolidation in the right base. Hospital Course: Patient was admitted to the hospital for right lower lobe pneumonia. This may be a viral infection, however due to his baseline as any gravis and clinical presentation, he was started on empiric IV Levaquin treatment. In he was started on IV fluids and breathing treatments along with symptomatic medications. Since patient was not having any symptom improvement, IV steroids were added and his nebulizer treatments were scheduled visit p.r.n.. His antibiotics were switched to azithromycin and Rocephin as patient was having myasthenia symptoms while on the Levaquin. His pain medications were adjusted, antitussive medications were added. Patient's neurologist, Dr. Leon was consulted. Per neurology, azithromycin was discontinued. Patient was continued on cephalosporins. It was recommended to avoid aminoglycosides, quinolones and macrolide medications. At the time of my exam on the day of discharge, patient was doing really well, sitting up in bed, and denying any shortness of breath off the oxygen. He was satting well on room air, his symptoms had drastically improved and patient really wanted to go home. He was discharged home on oral steroids, Cefdinir 300 mg twice a day for 7 days. He was also instructed to follow up with his primary care physician in [address] Leon, neurology in 2 weeks. Diagnoses/symptoms were explained to patient, all questions were answered and patient verbalized understanding. Patient was discharged home in a stable manner. Vital Signs/Physical Exam: Temp Pulse Resp BP Pulse Ox 98.5 F 88 20 119/67 93 04/07/18 12:00 04/07/18 12:00 04/07/18 12:00 04/07/18 12:00 04/07/18 12:00 General: Alert, In no apparent distress, Oriented x3 HEENT: Atraumatic, PERRLA, EOMI Neck: Supple, JVD not distended Respiratory: Crackles/rales Cardiovascular: Regular rate/rhythm, Normal S1 S2 Gastrointestinal: Normal bowel sounds, No tenderness Integumentary: No rashes Neurological: Normal speech, Normal tone, Normal affect Laboratory Data at Discharge: WBC 11.5 K/uL (4.3-10.9) H D 04/07/18 03:39 Hgb 12.0 g/dL (13.6-17.9) L 04/07/18 03:39 Hct 34.5 % (39.6-49.0) L 04/07/18 03:39 Plt Count 182 K/uL (152-406) 04/07/18 03:39 PT 13.5 SECONDS (9.5-12.5) H 04/04/18 19:15 INR 1.14 04/04/18 19:15 APTT 29.1 SECONDS (24.3-36.9) 04/04/18 19:15 Sodium 138 mmol/L (136-145) 04/07/18 03:39 Potassium 4.7 mmol/L (3.5-5.1) 04/07/18 03:39 BUN 21 mg/dL (7-18) H 04/07/18 03:39 Creatinine 1.15 mg/dL (0.55-1.3) 04/07/18 03:39 Glucose 114 mg/dL (74-106) H 04/07/18 03:39 Magnesium 2.2 mg/dL (1.8-2.4) D 04/06/18 03:45 Total Bilirubin 0.4 mg/dL (0.2-1.0) 04/07/18 03:39 AST 58 U/L (15-37) H 04/07/18 03:39 ALT 46 U/L (12-78) 04/07/18 03:39 Alkaline Phosphatase 42 U/L (45-117) L 04/07/18 03:39 Lipase 197 U/L (73-393) 04/04/18 19:15 Home Medications: Finasteride [Proscar*] 5 mg PO DAILY 06/01/14 Terazosin HCl [Hytrin] 10 mg PO BEDTIME 06/01/14 buPROPion HCl [Wellbutrin*] 2.5 tab PO DAILY 06/01/14 clonazePAM [Klonopin*] 0.5 mg PO BEDTIME 06/01/14 Bupropion HCl [Wellbutrin Sr] 2 tab PO SEECOM 04/05/18 Citalopram Hydrobromide [Citalopram HBr] 1 tab PO BEDTIME 04/05/18 Mycophenolate Mofetil 1 tab PO BEDTIME 04/05/18 Prednisone [Deltasone] 1 tab PO DAILY 04/05/18 Pyridostigmine [place] [Mestinon*] 0.5 tab PO TID 04/05/18 Cefdinir [Cefdinir*] 300 mg PO BID #14 cap 04/07/18 New Medications: Cefdinir [Cefdinir*] 300 mg PO BID #14 cap Patient Discharge Instructions: 1. Follow up with the primary care physician in 1 week. 2. You were diagnosed and treated for pneumonia. We had to adjust some antibiotics due to your myasthenia gravis. You were started on IV ceftriaxone in the hospital. At the time of discharge, this IV medication was switched to an oral antibiotic in the same class. Prescription for this medication has been sent to pharmacy. He will continue taking steroids. Please follow up with Dr. Leon in 1-2 weeks. 3. Please return to the emergency department for worsening symptoms. Diet: AHA Activity: Ad zach Followup: Michel Leon MD [ACTIVE - CAN ADMIT] - Physician Review: Patient Assessed, Agree with Above Assessment and Plan Time spent managing pt's care (in minutes): 55
== END 2018-04-07 12:30 | disposition home or self-care (01) | DRG 190 ==
LOC: ER 19:05 → ERHOLD 23:41 → 4TH 04-05 00:09
PROVIDERS: ADMIT Internal Medicine; ATTEND Internal Medicine
DX: J44.0 Chronic obstructive pulmonary disease with (acute) lower respiratory infection (principal); J18.9 Pneumonia, unspecified organism; J44.1 Chronic obstructive pulmonary disease with (acute) exacerbation; G70.00 Myasthenia gravis without (acute) exacerbation; F43.10 Post-traumatic stress disorder, unspecified; G47.33 Obstructive sleep apnea (adult) (pediatric); Z28.21 Immunization not carried out because of patient refusal
CPT/HCPCS: 36415; 71045; 71275; 80048; 80053; 80076; 81003; 81015; 82550; 82553; 82805; 83605; 83690; 83735; 84145; 84484; 85025; 85379; 85610; 85730; 87040; 87070; 87081; 87804; 93005; 94640; 94760; 97163; 99285; J0456; J0696; J1650; J2405; J2920; J3475; J7030; Q9967

== ENCOUNTER 2018-04-08 09:55 | Observation (INO) | payer OTHER ==
[2018-04-08] MEDS ORDERED: ALBUTEROL 2.5 MG/3 ML NEB SOL ONE (11:09)
[2018-04-08] MEDS ORDERED: IPRATROPIUM BROM 0.5MG/2.5ML ONE (11:09)
[2018-04-08] MEDS ORDERED: CEFTRIAXONE/SWI 1gm 1 GM/10 ML SYR ONE ×2 (11:10→20:22)
[2018-04-08] MEDS ORDERED: NA CHLORIDE 0.9% 1,000 ML ONE (11:10)
[2018-04-08] MEDS ORDERED: AZITHROMYCIN 500 MG/250 ML BAG ONE (11:10)
--- NOTE | 2018-04-08 11:10 | EDPHYS ---
Physician Documentation [facility] Name: Pedro Amaya Age: 72 yrs Sex: Male : 1945 Arrival Date: 04/08/2018 Time: 10:00 Bed 18 Private MD: None, None ED Physician Oscar Okeefe HPI: 04/08 10:58 This 72 yrs old Male presents to ER via Ambulatory with complaints of naila Breathing Difficulty. 10:58 The patient has shortness of breath at rest, with light activity. Onset: The naila symptoms/episode began/occurred 3 day(s) ago. Duration: The symptoms are continuous, and are steadily getting worse. The patient's shortness of breath is aggravated by coughing, supine position, talking, walking. Associated signs and symptoms: The patient has no apparent associated signs or symptoms. Severity of symptoms: At their worst the symptoms were moderate in the emergency department the symptoms are unchanged. The patient has experienced similar episodes in the past, multiple times. Historical: - Allergies: 10:18 Amoxil; aj 10:18 Indomethacin; aj 10:18 phenyifensin; aj 10:18 solunedrol-cortozone; aj - Home Meds: 10:18 bupropion HCl 100mg tab 2.5 tabs in the morning and 2 tabs at night Oral tab [Active]; aj citalopram 40 mg tab 1 tab once daily [Active]; citalopram oral [Active]; clonazepam 0.5 mg Oral tab 1 tab [Active]; mycophenolate mofetil 500 mg Oral tab 1 tabs [Active]; prednisone 30 mg daily Oral [Active]; pyridostigmine bromide 60mg 1/2 tgabd 3 times daily Oral tab [Active]; quetiapine 25 mg Oral tab [Active]; sulfamethoxazole-trimethoprim 800mg M// Oral [Active]; terazosin 10 mg Oral cap 1 cap once daily [Active]; Wellbutrin 150mg 2 tabs daily Oral [Active]; - PMHx: 10:18 anxity; COPD; Depression; Hypertension; miastenia gravis; PTSD; aj - PSHx: 10:18 back sx; knee sx; nasal sx; aj - Immunization history:: Adult Immunizations up to date. - Social history:: Smoking status: Patient/guardian denies using tobacco. - Ebola Screening: : Patient negative for fever greater than or equal to 101.5 degrees Fahrenheit, and additional compatible Ebola Virus Disease symptoms Patient denies exposure to infectious person Patient denies travel to an Ebola-affected area in the 21 days before illness onset No symptoms or risks identified at this time. - Family history:: not pertinent. ROS: 10:58 Eyes: Negative for injury, pain, redness, and discharge, ENT: Negative for injury, naila pain, and discharge, Neck: Negative for injury, pain, and swelling, Cardiovascular: Negative for chest pain, palpitations, and edema, Abdomen/GI: Negative for abdominal pain, nausea, vomiting, diarrhea, and constipation, Back: Negative for injury and pain, : Negative for injury, bleeding, discharge, and swelling, MS/Extremity: Negative for injury and deformity, Skin: Negative for injury, rash, and discoloration, Psych: Negative for depression, anxiety, suicide ideation, homicidal ideation, and hallucinations, Allergy/Immunology: Negative for hives, rash, and allergies, Endocrine: Negative for neck swelling, polydipsia, polyuria, polyphagia, and marked weight changes, Hematologic/Lymphatic: Negative for swollen nodes, abnormal bleeding, and unusual bruising. 10:58 Constitutional: Positive for fever. 10:58 Respiratory: Positive for cough, dyspnea on exertion, shortness of breath, wheezing, inspiratory, expiratory. 10:58 Back: Negative for injury or acute deformity. Exam: 11:07 Constitutional: This is a well developed, well nourished patient who is awake, alert, naila and in no acute distress. Head/Face: Normocephalic, atraumatic. Eyes: Pupils equal round and reactive to light, extra-ocular motions intact. Lids and lashes normal. Conjunctiva and sclera are non-icteric and not injected. Cornea within normal limits. Periorbital areas with no swelling, redness, or edema. ENT: Nares patent. No nasal discharge, no septal abnormalities noted. Tympanic membranes are normal and external auditory canals are clear. Oropharynx with no redness, swelling, or masses, exudates, or evidence of obstruction, uvula midline. Mucous membranes moist. Neck: Trachea midline, no thyromegaly or masses palpated, and no cervical lymphadenopathy. Supple, full range of motion without nuchal rigidity, or vertebral point tenderness. No Meningismus. Chest/axilla: Normal chest wall appearance and motion. Nontender with no deformity. No lesions are appreciated. Cardiovascular: Regular rate and rhythm with a normal S1 and S2. No gallops, murmurs, or rubs. Normal PMI, no JVD. No pulse deficits. Abdomen/GI: Soft, non-tender, with normal bowel sounds. No distension or tympany. No guarding or rebound. No evidence of tenderness throughout. Back: No spinal tenderness. No costovertebral tenderness. Full range of motion. Male : Normal genitalia with no discharge or lesions. Skin: Warm, dry with normal turgor. Normal color with no rashes, no lesions, and no evidence of cellulitis. MS/ Extremity: Pulses equal, no cyanosis. Neurovascular intact. Full, normal range of motion. Neuro: Awake and alert, GCS 15, oriented to person, place, time, and situation. Cranial nerves II-XII grossly intact. Motor strength 5/5 in all extremities. Sensory grossly intact. Cerebellar exam normal. Normal gait. Psych: Awake, alert, with orientation to person, place and time. Behavior, mood, and affect are within normal limits. 11:07 Respiratory: moderate respiratory distress is noted, Respirations: labored breathing, that is mild, that is moderate, Breath sounds: bronchial sounds, that are mild, that are moderate, decreased breath sounds, are not appreciated, rhonchi, are not appreciated, stridor, is not appreciated, wheezing: inspiratory expiratory Vital Signs: 10:18 BP 144 / 77; Pulse 81; Resp 27; Temp 99.9; Pulse Ox 94% on R/A; Weight 105.23 kg; aj Height 5 ft. 9 in. (175.26 cm); 11:58 BP 165 / 83; Pulse 90; Resp 24; Pulse Ox 93% on R/A; sv 10:18 Body Mass Index 34.26 (105.23 kg, 175.26 cm) aj MDM: 10:21 Patient medically screened. [facility] 11:09 Data reviewed: vital signs, nurses notes, lab test result(s), EKG, radiologic studies, naila plain films. 04/08 10:36 Order name: Basic Metabolic Panel; Complete Time: 11:40 [facility] 04/08 10:36 Order name: CBC with Diff [facility] 04/08 10:36 Order name: LFT's; Complete Time: 11:40 [facility] 04/08 10:36 Order name: Magnesium; Complete Time: 11:40 [facility] 04/08 10:36 Order name: NT PRO-BNP; Complete Time: 11:40 [facility] 04/08 10:36 Order name: PT-INR; Complete Time: 11:40 [facility] 04/08 10:36 Order name: Troponin (emerg Dept Use Only); Complete Time: 11:40 [facility] 04/08 10:36 Order name: Blood Culture Adult (2) [facility] 04/08 10:36 Order name: Flu; Complete Time: 12:09 [facility] 04/08 10:36 Order name: Procalcitonin [facility] 04/08 10:36 Order name: Urine Culture [facility] 04/08 10:36 Order name: Lipase; Complete Time: 11:40 [facility] 04/08 10:58 Order name: ABG; Complete Time: 11:40 [facility] 04/08 12:54 Order name: Urine Dipstick--Ancillary (enter results) 04/08 10:36 Order name: XRAY Chest (1 view); Complete Time: 11:40 [facility] 04/08 10:36 Order name: EKG; Complete Time: 10:37 [facility] 04/08 10:36 Order name: EKG - Nurse/Tech; Complete Time: 12:01 [facility] 04/08 10:36 Order name: IV Saline Lock; Complete Time: 10:57 [facility] 04/08 10:36 Order name: Labs collected and sent; Complete Time: 10:57 [facility] 04/08 12:07 Order name: Diet Heart Healthy; Complete Time: 12:11 04/08 12:09 Order name: Echo w/ Doppler [facility] 04/08 12:55 Order name: CBC Smear Scan [facility] 04/08 13:30 Order name: Urine Dipstick-Ancillary [facility] 04/08 10:36 Order name: O2 Per Protocol; Complete Time: 10:57 [facility] 04/08 10:36 Order name: O2 Sat Monitoring; Complete Time: 10:57 [facility] 04/08 10:36 Order name: Urine Dipstick-Ancillary (obtain specimen); Complete Time: 12:36 [facility] Administered Medications: 11:10 Drug: NS 0.9% 1000 ml Route: IV; Rate: 125 ml/hr; Site: right forearm; sv 12:37 Follow up: Response: No adverse reaction; IV Status: Infusion continued upon admission sv 13:30 Follow up: Response: No adverse reaction; IV Status: Infusion continued upon admission sv 11:10 Drug: SOLU-Medrol 125 mg Route: IVP; Site: right forearm; sv 12:01 Follow up: Response: No adverse reaction sv 11:11 Drug: Albuterol - atroVENT (3:1) (2.5 mg - 0.5 mg) 3 ml Route: Nebulizer; sv 12:01 Follow up: Response: No adverse reaction sv 11:12 Drug: Rocephin - (cefTRIAXone) 1 grams Route: IVPB; Infused Over: 30 mins; Site: right sv forearm; 11:15 Follow up: Response: No adverse reaction; IV Status: Completed infusion; IV Intake: sv 10ml ; given IVP per pharmacy 11:16 Drug: Zithromax 500 mg Route: IVPB; Infused Over: 1 hrs; Site: right forearm; sv 12:20 Follow up: Response: No adverse reaction; IV Status: Completed infusion; IV Intake: sv 250ml 12:18 Drug: Lasix 40 mg Route: IVP; Site: right forearm; sv 12:36 Follow up: Response: No adverse reaction sv Disposition: 04/08/18 11:09 Hospitalization ordered by Parth Maldonado for Inpatient Admission. Preliminary diagnosis are Dyspnea, Myasthenia gravis, Chronic obstructive pulmonary disease with (acute) exacerbation, Hypoxemia, Obesity, unspecified, Pneumonia due to other specified bacteria - bilateral. - Bed requested for Telemetry/MedSurg (Inpatient). - Status is Inpatient Admission. ss - Condition is Fair. - Problem is new. - Symptoms have improved. UTI on Admission? No Signatures: Dispatcher [employer] EDJosette Andrade RN RN sv Myers, Amanda, RN RN aj Anderson, Corey, MD MD cha Smirch, Shelby, RN RN Jumana Ward Corrections: (The following items were deleted from the chart) 11:11 11:09 Hospitalization Ordered by Parth Maldonado MD for Inpatient Admission. Preliminary naila diagnosis is Dyspnea; Myasthenia gravis; Chronic obstructive pulmonary disease with (acute) exacerbation. Bed requested for Telemetry/MedSurg (Inpatient). Status is Inpatient Admission. Condition is Fair. Problem is new. Symptoms have improved. UTI on Admission? No. naila 11:58 11:11 04/08/2018 11:09 Hospitalization Ordered by Parth Maldonado MD for Inpatient naila Admission. Preliminary diagnosis is Dyspnea; Myasthenia gravis; Chronic obstructive pulmonary disease with (acute) exacerbation; Hypoxemia; Obesity, unspecified. Bed requested for Telemetry/MedSurg (Inpatient). Status is Inpatient Admission. Condition is Fair. Problem is new. Symptoms have improved. UTI on Admission? No. naila 12:29 11:58 04/08/2018 11:09 Hospitalization Ordered by Parth Maldonado MD for Inpatient ag Admission. Preliminary diagnosis is Dyspnea; Myasthenia gravis; Chronic obstructive pulmonary disease with (acute) exacerbation; Hypoxemia; Obesity, unspecified; Pneumonia due to other specified bacteria - bilateral. Bed requested for Telemetry/MedSurg (Inpatient). Status is Inpatient Admission. Condition is Fair. Problem is new. Symptoms have improved. UTI on Admission? No. naila 14:04 12:29 04/08/2018 11:09 Hospitalization Ordered by Parth Maldonado MD for Inpatient ss Admission. Preliminary diagnosis is Dyspnea; Myasthenia gravis; Chronic obstructive pulmonary disease with (acute) exacerbation; Hypoxemia; Obesity, unspecified; Pneumonia due to other specified bacteria - bilateral. Bed requested for Telemetry/MedSurg (Inpatient). Status is Inpatient Admission. Condition is Fair. Problem is new. Symptoms have improved. UTI on Admission? No. ag
--- NOTE | 2018-04-08 11:10 | ER ---
Nurse's Notes [facility] Name: Pedro Amaya Age: 72 yrs Sex: Male : 1945 Arrival Date: 04/08/2018 Time: 10:00 Bed 18 Private MD: None, None Diagnosis: Dyspnea;Myasthenia gravis;Chronic obstructive pulmonary disease with (acute) exacerbation;Hypoxemia;Obesity, unspecified;Pneumonia due to other specified bacteria-bilateral Presentation: 04/08 10:16 Presenting complaint: Patient states: Reports SOB and cough that has not improved since aj patient was discharged from this facility with pneumonia. Patient reports that he was not sent home with nebulizer [place] and feels that he would benefit from them. Transition of care: patient was not received from another setting of care. Onset of symptoms was April 05, 2018. Risk Assessment: Do you want to hurt yourself or someone else? Patient reports no desire to harm self or others. Initial Sepsis Screen: Does the patient meet any 2 criteria? No. Patient's initial sepsis screen is negative. Does the patient have a suspected source of infection? No. Patient's initial sepsis screen is negative. Care prior to arrival: None. 10:16 Method Of Arrival: Ambulatory aj 10:16 Acuity: ERICH 3 aj Triage Assessment: 10:18 General: Appears in no apparent distress. uncomfortable, Behavior is calm, cooperative, aj appropriate for age. Pain: Complains of pain in diaphragm. Neuro: Level of Consciousness is awake, alert, obeys commands, Oriented to person, place, time, situation, Appropriate for age. Respiratory: Reports shortness of breath cough that is Airway is patent Respiratory effort is even, unlabored, Respiratory pattern is tachypnea Onset: The symptoms/episode began/occurred gradually, the patient has mild shortness of breath. Derm: Skin is intact, is healthy with good turgor, Skin is pink, warm \T\ dry. normal. Historical: - Allergies: 10:18 Amoxil; aj 10:18 Indomethacin; aj 10:18 phenyifensin; aj 10:18 solunedrol-cortozone; aj - Home Meds: 10:18 bupropion HCl 100mg tab 2.5 tabs in the morning and 2 tabs at night Oral tab [Active]; aj citalopram 40 mg tab 1 tab once daily [Active]; citalopram oral [Active]; clonazepam 0.5 mg Oral tab 1 tab [Active]; mycophenolate mofetil 500 mg Oral tab 1 tabs [Active]; prednisone 30 mg daily Oral [Active]; pyridostigmine bromide 60mg 1/2 tgabd 3 times daily Oral tab [Active]; quetiapine 25 mg Oral tab [Active]; sulfamethoxazole-trimethoprim 800mg M// Oral [Active]; terazosin 10 mg Oral cap 1 cap once daily [Active]; Wellbutrin 150mg 2 tabs daily Oral [Active]; - PMHx: 10:18 anxity; COPD; Depression; Hypertension; miastenia gravis; PTSD; aj - PSHx: 10:18 back sx; knee sx; nasal sx; aj - Immunization history:: Adult Immunizations up to date. - Social history:: Smoking status: Patient/guardian denies using tobacco. - Ebola Screening: : Patient negative for fever greater than or equal to 101.5 degrees Fahrenheit, and additional compatible Ebola Virus Disease symptoms Patient denies exposure to infectious person Patient denies travel to an Ebola-affected area in the 21 days before illness onset No symptoms or risks identified at this time. - Family history:: not pertinent. Screenin:22 Abuse screen: Denies threats or abuse. Denies injuries from another. Nutritional sv screening: No deficits noted. Tuberculosis screening: No symptoms or risk factors identified. Fall Risk None identified. Assessment: 10:45 General: Appears in no apparent distress. uncomfortable, obese, well developed, sv Behavior is calm, cooperative, appropriate for age. General: Reports that he was discharged yesterday from here and felt better but was unable to lay flat to sleep and started having increasing SOB through the night and morning. Pt stated that he was not sent home with any nebulizer medication and that made him feel like he could breathe while he was admitted. Pain: Complains of pain in right lateral anterior chest Pain currently is 2 out of 10 on a pain scale. Quality of pain is described as sharp, Is intermittent, episodic, Aggravated by coughing. Neuro: Level of Consciousness is awake, alert, obeys commands, Oriented to person, place, time, situation, Moves all extremities. Full function Gait is steady. Cardiovascular: Heart tones S1 S2 present Patient's skin is warm and dry. Pulses are 3+ in right radial artery and left radial artery. Respiratory: Reports shortness of breath at rest on exertion pain with cough Airway is patent Respiratory effort is even, labored, Respiratory pattern is symmetrical, tachypnea Breath sounds with rhonchi bilaterally. Derm: Skin is normal. 11:07 Reassessment: Dr Maldonado at the bedside. sv 11:07 Reassessment: ABG being done at this time by Andressa GUTIERREZ. sv 12:18 Reassessment: Patient appears in no apparent distress at this time. Patient and/or sv family updated on plan of care and expected duration. Pain level reassessed. Patient is alert, oriented x 3, equal unlabored respirations, skin warm/dry/pink. Patient states feeling better. Patient states symptoms have improved. 12:24 Reassessment: Pt given food tray. sv 13:44 Reassessment: Patient appears in no apparent distress at this time. Patient and/or sv family updated on plan of care and expected duration. Pain level reassessed. Patient is alert, oriented x 3, equal unlabored respirations, skin warm/dry/pink. Patient states feeling better. Patient states symptoms have improved. Vital Signs: 10:18 BP 144 / 77; Pulse 81; Resp 27; Temp 99.9; Pulse Ox 94% on R/A; Weight 105.23 kg; aj Height 5 ft. 9 in. (175.26 cm); 11:58 BP 165 / 83; Pulse 90; Resp 24; Pulse Ox 93% on R/A; sv 10:18 Body Mass Index 34.26 (105.23 kg, 175.26 cm) ED Course: 10:00 Patient arrived in ED. sb2 10:01 None, None is Private Physician. sb2 10:17 Triage completed. aj 10:18 Arm band placed on left wrist. Patient placed in an exam room. aj 10:21 Oscar Okeefe MD is Attending Physician. naila 10:22 Josette Gayle, RILEY is Primary Nurse. sv 10:22 Awaiting ED provider evaluation. sv 10:22 Patient has correct armband on for positive identification. Bed in low position. Adult sv w/ patient. Door closed. Head of bed elevated. 10:50 Initial lab(s) drawn, by me, sent to lab. First set of blood cultures drawn by me. sv Inserted saline lock: 20 gauge in right antecubital area, using aseptic technique. Blood collected. Flushed right antecubital with 5 ml normal saline. 11:08 Parth Maldonado MD is Hospitalizing Provider. [facility] 11:12 EKG done, by health record technician. reviewed by Oscar Okeefe MD. 3 11:13 X-ray completed. Portable x-ray completed in exam room. Patient tolerated procedure jb2 well. 11:15 XRAY Chest (1 view) In Process Unspecified. EDMS 12:02 Awaiting bed assignment. sv 13:45 No provider procedures requiring assistance completed. Patient admitted, IV remains in sv place. intact. Administered Medications: 11:10 Drug: NS 0.9% 1000 ml Route: IV; Rate: 125 ml/hr; Site: right forearm; sv 12:37 Follow up: Response: No adverse reaction; IV Status: Infusion continued upon admission sv 13:30 Follow up: Response: No adverse reaction; IV Status: Infusion continued upon admission sv 11:10 Drug: SOLU-Medrol 125 mg Route: IVP; Site: right forearm; sv 12:01 Follow up: Response: No adverse reaction sv 11:11 Drug: Albuterol - atroVENT (3:1) (2.5 mg - 0.5 mg) 3 ml Route: Nebulizer; sv 12:01 Follow up: Response: No adverse reaction sv 11:12 Drug: Rocephin - (cefTRIAXone) 1 grams Route: IVPB; Infused Over: 30 mins; Site: right sv forearm; 11:15 Follow up: Response: No adverse reaction; IV Status: Completed infusion; IV Intake: sv 10ml ; given IVP per pharmacy 11:16 Drug: Zithromax 500 mg Route: IVPB; Infused Over: 1 hrs; Site: right forearm; sv 12:20 Follow up: Response: No adverse reaction; IV Status: Completed infusion; IV Intake: sv 250ml 12:18 Drug: Lasix 40 mg Route: IVP; Site: right forearm; sv 12:36 Follow up: Response: No adverse reaction sv Intake: 11:15 IV: 10ml; Total: 10ml. sv 12:20 IV: 250ml; Total: 260ml. sv Output: 12:36 Urine: 350ml (Voided); Total: 350ml. sv 13:43 Urine: 1000ml (Voided); Total: 1350ml. sv Outcome: 11:09 Decision to Hospitalize by Provider. naila 13:44 Admitted to Tele accompanied by tech, family with patient, via wheelchair, room 427, with chart, Report called to Constance LIN 13:44 Condition: stable 13:44 Instructed on the need for admit. 14:04 Patient left the ED. Signatures: Dispatcher [employer] Josette Jules RN RN sv Myers, Amanda, RN RN aj Anderson, Corey, MD MD cha Buechter, Jesse jb2 Smirch, Shelby, RN RN Ashly Juarez sb2 Annie Lawson sm3 Corrections: (The following items were deleted from the chart) 17:40 12:37 Response: No adverse reaction; IV Status: Infusion continued upon admission [facility]
[2018-04-08 11:12] LABS: Arterial Blood Carboxyhemoglob 0.9 % (0-1.5); Blood Gas Oxyhemoglobin 91.7 % (94-97); Blood O2 Saturation 93.4 % (92-98.5)
[2018-04-08 11:13] LABS: Absolute Lymphocytes (CBC) 0.9 K/uL (0.7-4.9); Absolute Monocytes 0.7 K/uL (0.1-1.3); Absolute Neutrophil 9.9 K/uL (1.8-8.0); Basophils % 0.2 % (0-1.3); Eosinophils % 0.1 % (0-4.4); Hematocrit 35.2 % (39.6-49.0); MPV 8.2 fL (7.6-11.3); Monocytes % 5.9 % (3.3-12.3); RBC Red Blood Cell Count 3.96 M/uL (4.33-5.43)
[2018-04-08 11:14] LABS: Protime INR 1.17
--- NOTE | 2018-04-08 11:20 | EKG ---
Test Date: 2018-04-08 Test Time: 10:57:11 Scout Leaser: VIDYA MEASUREMENT RESULTS: Intervals: Rate: 74 WY: 144 QRSD: 128 QT: 400 QTc: 444 [place]: P: 50 WY: 144 QRS: 16 T: 51 INTERPRETIVE STATEMENTS: Normal sinus rhythm Right bundle branch block Abnormal ECG Compared to ECG 04/04/2018 19:11:23 No significant changes Electronically Signed On 04-08-18 11:19:39 MILITARY TECHNICIAN by Charlie Ji
[2018-04-08] MEDS ORDERED: METHYLPREDNISOLONE 125 MG INJ ONE (11:22)
--- NOTE | 2018-04-08 11:24 | RAD REPORT ---
EXAM DESCRIPTION: RAD - Chest Single View - 04/08/2018 11:14 am CLINICAL HISTORY: Cough and congestion, shortness of breath COMPARISON: April 04, 2018 TECHNIQUE: AP portable chest image was obtained 1103 hours . FINDINGS: Patient has a baseline prominence of the interstitial pattern. Vasculature is fractionally increased from the comparison. Interstitial and patchy alveolar opacification seen in each lung base . Lung volumes are similar between the 2 studies. Trachea is midline. Heart size is normal. No measur able pleural effusion and no pneumothorax. No acute bony abnormality seen. No acute aortic findings s uspected. IMPRESSION: Patient has new bilateral lung base opacification and a slight increase in the vasculatu re. Bilateral lung base pneumonia is suspected though the patient may have an asymmetric failure/ volume overload component as well.
[2018-04-08 11:27] LABS: Albumin 3.4 g/dL (3.4-5.0); Bilirubin Direct 0.2 mg/dL (0-0.2); Bilirubin Total 0.5 mg/dL (0.2-1.0); Magnesium 2.2 mg/dL (1.8-2.4); Potassium 3.9 mmol/L (3.5-5.1); Protein, Total 7.1 g/dL (6.4-8.2); Troponin (Emerg Dept Use Only) 0.02 ng/mL (0.0-0.045)
[2018-04-08] MEDS ORDERED: FUROSEMIDE 40 MG/4 ML VIAL ONE (12:09)
[2018-04-08 12:54] LABS: Blood Morphology Comment NOT SEEN (NOT SEEN); Platelet Estimate ADEQ; Urine White Blood Cell Casts OK
[2018-04-08 13:30] LABS: Urine Blood 1+ (NEG); Urine Glucose NEGATIVE (NEG); Urine Protein 1+ (NEG); Urine Specific Gravity 1.015 (1.005-1.030)
[2018-04-08] MEDS: ALBUTEROL 2.5 MG/3 ML NEB SOL NEB SCH ×2 (14:50→19:37)
[2018-04-08] MEDS: IPRATROPIUM BROM 0.5MG/2.5ML NEB SCH ×2 (14:50→19:37)
[2018-04-08] MEDS ORDERED: POTASSIUM CL SA 10 MEQ TAB PO ONE (15:00)
[2018-04-08] MEDS ORDERED: BUPROPION HCL PO SCH (18:45)
--- NOTE | 2018-04-08 18:47 | P.HP ---
Certification for Inpatient Patient admitted to: Observation With expected LOS: <2 Midnights Practitioner: I am a practitioner with admitting privileges, knowledge of patient current condition, hospital course, and medical plan of care. Services: Services provided to patient in accordance with Admission requirements found in Title 42 Section 412.3 of the Code of Federal Regulations Patient History Date of Service: 04/08/18 Reason for admission: Shortness of breath and productive cough History of Present Illness: This is a 72-year-old male with history of COPD, as in the gravis, hypertension , PTSD admitted for shortness of breath and productive cough. He was recently discharged 1 day ago from the hospital for similar complaints. Per patient, after he left he he thought his symptoms progressively got worse and he realized he did not have any nebulizer treatments at home. This is why he came back to the hospital. In the ER, he was satting 98% on room air, lab work pretty unremarkable go ABGs were normal. At the time of my exam, patient was bleeding seen with though was alert oriented x3, in mild to moderate distress. Allergies amoxicillin Allergy (Verified 04/05/18 00:46) Hives/Rash Antihistamines - Alkylamine Allergy (Verified 06/01/14 22:35) Hives/Rash chlorpheniramine maleate [From Actifed Cold-Allergy] Allergy (Verified 04/05/18 00:46) Hives/Rash Penicillins Allergy (Verified 04/05/18 00:46) Hives/Rash phenylephrine HCl [From Actifed Cold-Allergy] Allergy (Verified 04/05/18 00:46) Hives/Rash pseudoephedrine HCl [From Actifed Cold-Allergy] Allergy (Verified 04/05/18 00:46 ) Hives/Rash triprolidine HCl [From Actifed Cold-Allergy] Allergy (Verified 04/05/18 00:46) Hives/Rash Home Medications: Finasteride [Proscar*] 5 mg PO DAILY 06/01/14 Terazosin HCl [Hytrin] 10 mg PO BEDTIME 06/01/14 buPROPion HCl [Wellbutrin*] 2 tab PO DAILY 06/01/14 clonazePAM [Klonopin*] 0.5 mg PO BEDTIME 06/01/14 Bupropion HCl [Wellbutrin Sr] 2 tab PO SEECOM 04/05/18 Citalopram Hydrobromide [Citalopram HBr] 1 tab PO BEDTIME 04/05/18 Mycophenolate Mofetil 1 tab PO BEDTIME 04/05/18 Prednisone [Deltasone] 1 tab PO DAILY 04/05/18 Pyridostigmine [place] [Mestinon*] 0.5 tab PO TID 04/05/18 Cefdinir [Cefdinir*] 300 mg PO BID 04/08/18 - Past Medical/Surgical History Diabetic: No -: sleep apnea -: PTSD -: anxiety -: depression -: Myasthenia Gravis -: back sx -: knee sx -: nasal sx - Family History Brother -: Cancer - Social History Alcohol use: Yes CD- Drugs: No Caffeine use: Yes Review of Systems 10-point ROS is otherwise unremarkable Physical Examination - Vital Signs Temperature: 99.4 F Blood Pressure: 150/82 Pulse: 78 Respirations: 24 Pulse Ox (%): 94 - Physical Exam General: Alert, In no apparent distress, Oriented x3 HEENT: Atraumatic, PERRLA, Mucous membr. moist/pink, EOMI, Sclerae nonicteric Neck: Supple, 2+ carotid pulse no bruit, No LAD, Without JVD or thyroid abnormality Respiratory: Crackles/rales, Expiratory wheezes, Inspiratory wheezes Cardiovascular: Regular rate/rhythm, Normal S1 S2 Gastrointestinal: Normal bowel sounds, No tenderness Musculoskeletal: No tenderness Integumentary: No rashes Neurological: Normal gait, Normal speech, Normal strength at 5/5 x4 extr, Normal tone, Normal affect Lymphatics: No axilla or inguinal lymphadenopathy - Studies Laboratory Data (last 24 hrs) 04/08/18 10:50: PT 13.8 H, INR 1.17 04/08/18 10:50: WBC 11.6 H, Hgb 12.0 L, Hct 35.2 L, Plt Count 215 04/08/18 10:50: Sodium 139, Potassium 3.9, BUN 16, Creatinine 0.95, Glucose 90, Magnesium 2.2, Total Bilirubin 0.5, AST 51 H, ALT 52, Alkaline Phosphatase 49, Lipase 186 Microbiology Data (last 24 hrs): 04/08/18 11:30 Nasopharnyx Influenza Type A Antigen Screen - Final 04/08/18 11:30 Nasopharnyx Influenza Type B Antigen Screen - Final Assessment and Plan - Problems (Diagnosis) (1) COPD exacerbation Current Visit: No Status: Acute (2) HTN (hypertension) Current Visit: No Status: Acute Qualifiers: Hypertension type: essential hypertension (3) Myasthenia gravis Current Visit: No Status: Chronic (4) Pneumonia Current Visit: No Status: Acute Qualifiers: Pneumonia type: due to unspecified organism (5) PTSD (post-traumatic stress disorder) Current Visit: No Status: Chronic - Plan Acute chronic obstructive pulmonary disease exacerbation. Start nebulizer treatments and IV steroids. Right basilar pneumonia. Start IV Rocephin. Will avoid fluoroquinolones, macrolides due to patient's myasthenia gravis. The patient is immunocompromised due to his medications for myasthenia gravis. Myasthenia gravis, stable. Continue home medications. Immunocompromised status. Essential hypertension, stable. Resume home medication Posttraumatic stress disorder. Continue with anxiety medications as needed. Obstructive sleep apnea. DVT prophylaxis: Lovenox GI prophylaxis: Protonix Diet: Heart healthy Disposition: Admit to floor with tele for observation. Pending symptomatic improvement Discharge Plan: Home - Advance Directives Does patient have a Living Will: No Does patient have a Durable POA for Healthcare: Yes Physician Review: Patient Assessed, Agree with Above Assessment and Plan Time Spent Managing Pts Care (In Minutes): 55
[2018-04-08 19:48] VITALS: BMI 34.2
[2018-04-08] MEDS ORDERED: CEFTRIAXONE 1 GM/NS 50 ML 1 GM/50 ML BAG IV SCH (21:00)
[2018-04-08] MEDS: MYCOPHENOLATE MOFETIL PO SCH (21:00)
[2018-04-08] MEDS: CITALOPRAM 10 MG TABLET PO SCH (21:14)
[2018-04-08] MEDS: TERAZOSIN HCL 5 MG CAP PO SCH (21:15)
[2018-04-08] MEDS: PYRIDOSTIGMINE 60 MG TABLET PO SCH (21:15)
[2018-04-08] MEDS: clonazePAM 0.5 MG TAB PO SCH (21:15)
[2018-04-08] MEDS: METHYLPREDNISOLONE 125 MG INJ IV SCH (23:27)
[2018-04-09] MEDS: ALBUTEROL 2.5 MG/3 ML NEB SOL NEB SCH ×4 (01:35→20:10)
[2018-04-09] MEDS: IPRATROPIUM BROM 0.5MG/2.5ML NEB SCH ×4 (01:35→20:10)
[2018-04-09 04:18] LABS: Absolute Lymphocytes (CBC) 0.6 K/uL (0.7-4.9); Absolute Monocytes 0.4 K/uL (0.1-1.3); Absolute Neutrophil 6.8 K/uL (1.8-8.0); Hematocrit 35.7 % (39.6-49.0); Lymphocytes % 7.6 % (15.3-44.8); MPV 8.2 fL (7.6-11.3); Monocytes % 5.5 % (3.3-12.3); RBC Red Blood Cell Count 4.02 M/uL (4.33-5.43)
[2018-04-09 04:30] LABS: Albumin 3.3 g/dL (3.4-5.0); Bilirubin Total 0.5 mg/dL (0.2-1.0); Potassium 4.3 mmol/L (3.5-5.1); Protein, Total 7.3 g/dL (6.4-8.2)
[2018-04-09] MEDS: METHYLPREDNISOLONE 125 MG INJ IV SCH ×3 (05:31→17:36)
[2018-04-09] MEDS: PYRIDOSTIGMINE 60 MG TABLET PO SCH ×3 (08:29→20:45)
[2018-04-09] MEDS: FINASTERIDE 5 MG TAB PO SCH (08:30)
[2018-04-09] MEDS: buPROPion HCl 100 MG TAB PO SCH (08:30)
[2018-04-09] MEDS: CEFTRIAXONE/SWI 1gm 1 GM/10 ML SYR IV SCH ×2 (08:30→20:45)
--- NOTE | 2018-04-09 18:11 | P.PN ---
Subjective Date of Service: 04/09/18 Chief Complaint: Shortness of breath and productive cough Subjective: No new changes, No C/O voiced, Improving Patient seen and examined at bedside. at bedside. Chart reviewed and case discussed with nursing staff. Review of Systems 10-point ROS is otherwise unremarkable Physical Examination - Vital Signs Temperature: 97.6 F Blood Pressure: 142/76 Pulse: 66 Respirations: 20 Pulse Ox (%): 94 - Physical Exam General: Alert, In no apparent distress, Oriented x3 HEENT: Atraumatic, PERRLA, EOMI Neck: Supple, JVD not distended Respiratory: Diminished, Expiratory wheezes Cardiovascular: Regular rate/rhythm, Normal S1 S2 Gastrointestinal: Normal bowel sounds, No tenderness Musculoskeletal: No tenderness Integumentary: No rashes Neurological: Normal speech, Normal tone, Normal affect Lymphatics: No axilla or inguinal lymphadenopathy Assessment And Plan - Current Problems (Diagnosis) (1) COPD exacerbation Current Visit: No Status: Acute (2) HTN (hypertension) Current Visit: No Status: Acute Qualifiers: Hypertension type: essential hypertension (3) Myasthenia gravis Current Visit: No Status: Chronic (4) Pneumonia Current Visit: No Status: Acute Qualifiers: Pneumonia type: due to unspecified organism (5) PTSD (post-traumatic stress disorder) Current Visit: No Status: Chronic - Plan Acute chronic obstructive pulmonary disease exacerbation. Start nebulizer treatments and IV steroids. Right basilar pneumonia. Start IV Rocephin. Will avoid fluoroquinolones, macrolides due to patient's myasthenia gravis. The patient is immunocompromised due to his medications for myasthenia gravis. Myasthenia gravis, stable. Continue home medications. Immunocompromised status. Essential hypertension, stable. Resume home medication Posttraumatic stress disorder. Continue with anxiety medications as needed. Obstructive sleep apnea. Complaining of daytime sleepiness, being excessively tired all day. Patient with a diagnosis of obstructive sleep apnea, does not use CPAP machine at home. Discussed with the and the patient that he will need outpatient sleep study for further evaluation. DVT prophylaxis: Lovenox GI prophylaxis: Protonix Diet: Heart healthy Disposition: Pending symptomatic improvement Physician Review: Patient Assessed, Agree with Above Assessment and Plan
[2018-04-09] MEDS: TERAZOSIN HCL 5 MG CAP PO SCH (20:45)
[2018-04-09] MEDS: MYCOPHENOLATE MOFETIL PO SCH (20:45)
[2018-04-09] MEDS: clonazePAM 0.5 MG TAB PO SCH (20:46)
[2018-04-09] MEDS: CITALOPRAM 10 MG TABLET PO SCH (20:46)
[2018-04-10] MEDS: METHYLPREDNISOLONE 125 MG INJ IV SCH ×3 (00:01→11:57)
[2018-04-10] MEDS: ALBUTEROL 2.5 MG/3 ML NEB SOL NEB SCH ×2 (01:50→08:07)
[2018-04-10] MEDS: IPRATROPIUM BROM 0.5MG/2.5ML NEB SCH ×2 (01:50→08:07)
[2018-04-10 06:45] LABS: Phosphorus 4.3 mg/dL (2.5-4.9); Potassium 4.5 mmol/L (3.5-5.1)
--- NOTE | 2018-04-10 07:59 | ECHO ---
HEIGHT: 5 ft 9 in WEIGHT: 232 lb 0 oz DATE OF STUDY: 04/09/[address]: Oscar Okeefe MD 2-DIMENSIONAL: YES M.MODE: YES DOPPLER: YES COLOR FLOW: YES TDS: NO PORTABLE: NO DEFINITY: NO BUBBLE STUDY: NO DIAGNOSIS: CONGESTIVE HEART FAILURE CARDIAC HISTORY: CATHERIZATION: NO SURGERY: NO PROSTHETIC VALVE: NO PACEMAKER: NO MEASUREMENTS (cm) DIASTOLIC (NORMALS) SYSTOLIC (NORMALS) IVSd 1.4 (0.6-1.2) LA Diam 4.6 (1.9-4.0) LVEF 85% LVIDd 3.7 (3.5-5.7) LVIDs 1.7 (2.0-3.5) %FS 53% LVPWd 1.5 (0.6-1.2) Ao Diam 3.4 (2.0-3.7) 2 DIMENSIONAL ASSESSMENT: RIGHT ATRIUM: NORMAL LEFT ATRIUM: DILATED RIGHT VENTRICLE: NORMAL LEFT VENTRICLE: NORMAL TRICUSPID VALVE: NORMAL MITRAL VALVE: NORMAL PULMONIC VALVE: NORMAL AORTIC VALVE: SCLEROSIS PERICARDIAL EFFUSION: NONE AORTIC ROOT: NORMAL LEFT VENTRICULAR WALL MOTION: NORMAL DOPPLER/COLOR FLOW: NORMAL COMMENTS: NORMAL LEFT VENTRICULAR SIZE AND FUNCTION. AORTIC SCLEROSIS WITH NO STENOSIS. LEFT ATRIAL ENLARGEMENT. TECHNOLOGIST: Emmanuel STRINGER
[2018-04-10] MEDS: PYRIDOSTIGMINE 60 MG TABLET PO SCH (09:00)
[2018-04-10] MEDS: FINASTERIDE 5 MG TAB PO SCH (09:00)
[2018-04-10] MEDS: CEFTRIAXONE/SWI 1gm 1 GM/10 ML SYR IV SCH (09:00)
[2018-04-10 09:49] VITALS: BP 160/85; TEMP 97.5
[2018-04-10] MEDS: buPROPion HCl 100 MG TAB PO SCH (10:11)
[2018-04-10 10:15] VITALS: O2SAT 93
--- NOTE | 2018-04-10 10:57 | RAD REPORT ---
EXAM DESCRIPTION: RAD - Chest Pa And Lat (2 Views) - 04/10/2018 10:44 am CLINICAL HISTORY: PNA Chest pain. COMPARISON: Chest Single View dated 04/08/2018; Chest Single View dated 04/04/2018; Chest Pa And Lat ( 2 Views) dated 07/17/2015; CHEST SINGLE VIEW dated 06/01/2014 FINDINGS: Ill-defined left retrocardiac pulmonary opacity is noted compatible with pneumonia. The yessica ngs are otherwise mildly emphysematous but clear. The heart is mildly prominent in size. No displaced fractures. IMPRESSION: Ill-defined left retrocardiac lung opacity most compatible with pneumonia.
--- NOTE | 2018-04-10 14:12 | P.SSS ---
Patient History Date of Service: 04/10/18 [facility]: [facility] Reason for admission: Shortness of breath and productive cough History of Present Illness: This is a 72-year-old male with history of COPD, as in the gravis, hypertension , PTSD admitted for shortness of breath and productive cough. He was recently discharged 1 day ago from the hospital for similar complaints. Per patient, after he left he he thought his symptoms progressively got worse and he realized he did not have any nebulizer treatments at home. This is why he came back to the hospital. In the ER, he was satting 98% on room air, lab work pretty unremarkable go ABGs were normal. At the time of my exam, patient was bleeding seen with though was alert oriented x3, in mild to moderate distress. Allergies amoxicillin Allergy (Verified 04/05/18 00:46) Hives/Rash Antihistamines - Alkylamine Allergy (Verified 06/01/14 22:35) Hives/Rash chlorpheniramine maleate [From Actifed Cold-Allergy] Allergy (Verified 04/05/18 00:46) Hives/Rash Penicillins Allergy (Verified 04/05/18 00:46) Hives/Rash phenylephrine HCl [From Actifed Cold-Allergy] Allergy (Verified 04/05/18 00:46) Hives/Rash pseudoephedrine HCl [From Actifed Cold-Allergy] Allergy (Verified 04/05/18 00:46 ) Hives/Rash triprolidine HCl [From Actifed Cold-Allergy] Allergy (Verified 04/05/18 00:46) Hives/Rash Home Medications: Finasteride [Proscar*] 5 mg PO DAILY 06/01/14 Terazosin HCl [Hytrin] 10 mg PO BEDTIME 06/01/14 buPROPion HCl [Wellbutrin*] 2 tab PO DAILY 06/01/14 clonazePAM [Klonopin*] 0.5 mg PO BEDTIME 06/01/14 Bupropion HCl [Wellbutrin Sr] 2 tab PO SEECOM 04/05/18 Citalopram Hydrobromide [Citalopram HBr] 1 tab PO BEDTIME 04/05/18 Mycophenolate Mofetil 1 tab PO BEDTIME 04/05/18 Pyridostigmine [place] [Mestinon*] 0.5 tab PO TID 04/05/18 Cefdinir [Cefdinir*] 300 mg PO BID 04/08/18 Albuterol Neb [Proventil 0.083% Neb Soln] 2.5 mg NEB [id number] #7 amp 04/10/18 Ipratropium Neb [Atrovent*] 0.5 mg NEB [id number] #7 amp 04/10/18 Prednisone [Deltasone] 1 tab PO DAILY #10 tablet 04/10/18 - Past Medical/Surgical History Has patient received pneumonia vaccine in the past: Yes Diabetic: No -: sleep apnea -: PTSD -: anxiety -: depression -: Myasthenia Gravis -: back sx -: knee sx -: nasal sx - Family History Brother -: Cancer - Social History Alcohol use: Yes CD- Drugs: No Caffeine use: Yes Review of Systems 10-point ROS is otherwise unremarkable Physical Examination - Vital Signs Temperature: 97.5 F Blood Pressure: 160/85 Pulse: 72 Respirations: 20 Pulse Ox (%): 90 - Physical Exam General: Alert, In no apparent distress, Oriented x3 HEENT: Atraumatic, PERRLA, Mucous membr. moist/pink, EOMI, Sclerae nonicteric Neck: Supple, 2+ carotid pulse no bruit, No LAD, Without JVD or thyroid abnormality Respiratory: Clear to auscultation bilaterally, Normal air movement Cardiovascular: Regular rate/rhythm, Normal S1 S2 Gastrointestinal: Normal bowel sounds, No tenderness Musculoskeletal: No tenderness Integumentary: No rashes Neurological: Normal gait, Normal speech, Normal strength at 5/5 x4 extr, Normal tone, Normal affect Lymphatics: No axilla or inguinal lymphadenopathy - Diagnosis (Problem(s)) (1) COPD exacerbation Status: Acute (2) HTN (hypertension) Status: Acute Qualifiers: Hypertension type: essential hypertension (3) Myasthenia gravis Status: Chronic (4) Pneumonia Status: Acute Qualifiers: Pneumonia type: due to unspecified organism (5) PTSD (post-traumatic stress disorder) Status: Chronic Treatment Summary: Patient was admitted for COPD exacerbation and right basilar pneumonia. He was started on ceftriaxone as to avoid macrolide, fluroquinolones, and aminoglycosides because of his myasthenia gravis. He was started on nebulizer treatments and IV steroids. He was given oxygen as needed. His symptoms improved drastically. His only complaints was excessive daytime sleepiness. We recommended patient to discuss this with PCP so he could be set up with sleep study. Per , patient has a diagnosis of sleep apnea but he did not want to use the CPAP machine last time. discussed with patient and recommended another sleep study and another fitting for CPAP machine. Discharged home in a stable manner, with PO cephalosporins and po steroids. Discussed symptoms/disease process, all questions answered and patient verbalized understanding. - Disposition Disposition: ROUTINE DISCHARGE Condition: GOOD Patient Discharge Instructions: Please follow up with your primary care physician in 1 week. Please follow up with your primary care physician regarding setting up outpatient sleep study as we discussed. Prescription for albuterol and ipratropium sent to your pharmacy. Please complete the course of antibiotics - Prescription was sent to your pharmacy when you were discharged previously. Please return to the ER for worsening symptoms. Diet: AHA Activity: Ad zahc Physician Review: Patient Assessed, Agree with Above Assessment and Plan Time Spent Managing Pts Care (In Minutes): 55
== END 2018-04-10 12:10 | disposition home or self-care (01) ==
LOC: ER 09:55 → ERHOLD 12:06 → 4TH 13:42
PROVIDERS: ADMIT Family Medicine; ATTEND Family Medicine
DX: J44.0 Chronic obstructive pulmonary disease with (acute) lower respiratory infection (principal); J18.9 Pneumonia, unspecified organism; J44.1 Chronic obstructive pulmonary disease with (acute) exacerbation; I10 Essential (primary) hypertension; G70.00 Myasthenia gravis without (acute) exacerbation; F41.8 Other specified anxiety disorders; F43.10 Post-traumatic stress disorder, unspecified; Z88.0 Allergy status to penicillin
CPT/HCPCS: 36415 ×2; 71045; 71046; 80048 ×2; 80053; 80076; 81003; 82805; 83690; 83735; 83880; 84100; 84145; 84484; 85025 ×2; 85610; 87040 ×2; 87088; 87804 ×2; 93005; 93306; 94640 ×2; 94760 ×5; 96365; 96375; 99285; G0378 ×2; J0456; J0696 ×5; J1940; J2930 ×8; J7030; 87086